=== PATIENT | male | born 1945 | race Caucasian/White ===

== ENCOUNTER 2020-11-24 09:51 | Outpatient (CLI) | payer MEDICARE, BC, SELFPAY ==
[2020-11-24 10:27] LABS: Hematocrit 44.2 % (42.0-52.0); Hemoglobin 14.9 g/dL (14.0-18.0); Mean Corpuscular HGB Conc 33.7 g/dl (32-36); Mean Corpuscular Volume 91.9 fl (80-100); Mean Platelet Volume 9.6 fl (7.4-10.4); Platelet Count Result 213 k/mm3 (150-375); Red Blood Count 4.81 M/mm3 (4.6-6.20); Red Cell Distribution Width 13.3 % (11.5-14.5)
[2020-11-24 11:18] LABS: Erythrocyte Sedimentation Rate 19 mm/hr (0-20)
[2020-11-24 11:25] LABS: Alanine Aminotransferase 23 U/L (4-50); Albumin Level 4.2 g/dL (3.5-5.1); Alkaline Phosphatase 83 U/L (38-126); Anion Gap 5 mmol/L (8-16); Aspartate Amino Transferase 29 U/L (17-59); Bilirubin,Total 0.5 mg/dL (0.2-1.3); Blood Urea Nitrogen 20 mg/dL (9-20); CRP 0.9 mg/dL (<1.0); Carbon Dioxide 28 mmol/L (22-30); Chloride 107 mmol/L (98-107); Estimated Glomerular Filt Rate > 60; Glucose 97 mg/dL (65-110); Potassium 4.1 mmol/L (3.4-5.0); Sodium 140 mmol/L (137-145)
== END 2020-11-24 09:52 | disposition home or self-care (01) ==
PROVIDERS: PCP Emergency Medicine; Visit Provider Nurse Practitioner Family
DX: K52.9 Noninfective gastroenteritis and colitis, unspecified (principal)
CPT/HCPCS: 36415; 80053; 85027; 85652; 86140

== ENCOUNTER 2020-12-01 09:06 | Outpatient (NON) | payer MEDICARE, BC, SELFPAY ==
[2020-12-06 20:32] LABS: Calprotectin, Stool 602 mcg/g
== END 2020-12-01 09:07 | disposition home or self-care (01) ==
LOC: ANHLAB 09:07
PROVIDERS: PCP Emergency Medicine; Visit Provider Nurse Practitioner Family
DX: K52.9 Noninfective gastroenteritis and colitis, unspecified (principal)
CPT/HCPCS: 83993

== ENCOUNTER 2021-06-02 10:24 | Outpatient (CLI) | payer MEDICARE, BC, SELFPAY ==
[2021-06-02 11:00] LABS: Hematocrit 43.9 % (42.0-52.0); Mean Corpuscular HGB Conc 34.2 g/dl (32-36); Mean Corpuscular Hemoglobin 31.2 pg (26-34); Mean Corpuscular Volume 91.3 fl (80-100); Mean Platelet Volume 9.9 fl (7.4-10.4); Platelet Count Result 235 k/mm3 (150-375); Red Blood Count 4.81 M/mm3 (4.6-6.20); Red Cell Distribution Width 13.6 % (11.5-14.5)
[2021-06-02 11:11] LABS: Alanine Aminotransferase 25 U/L (4-50); Alkaline Phosphatase 86 U/L (38-126); Anion Gap 6 mmol/L (8-16); Aspartate Amino Transferase 31 U/L (17-59); Bilirubin,Total 0.8 mg/dL (0.2-1.3); Blood Urea Nitrogen 19 mg/dL (9-20); Calcium 8.4 mg/dL (8.4-10.2); Carbon Dioxide 23 mmol/L (22-30); Chloride 107 mmol/L (98-107); Estimated Glomerular Filt Rate > 60; Glucose 124 mg/dL (65-110); Potassium 4.2 mmol/L (3.4-5.0); Sodium 136 mmol/L (137-145)
== END 2021-06-02 10:25 | disposition home or self-care (01) ==
PROVIDERS: PCP Emergency Medicine; Visit Provider Nurse Practitioner Family
DX: K51.30 Ulcerative (chronic) rectosigmoiditis without complications (principal); K52.9 Noninfective gastroenteritis and colitis, unspecified
CPT/HCPCS: 36415; 80053; 85027

== ENCOUNTER 2021-07-05 00:52 | Day surgery (SDC) | payer MEDICARE, BC, SELFPAY ==
[2021-06-22 14:54] VITALS: BMI 27.8
[2021-07-05 12:41] VITALS: BP 124/70; PULSE 83; RESP 17; TEMP 36.2; O2SAT 98; BMI 27.8
[2021-07-05] MEDS: LACTATED RINGERS 1,000 ML 150 ML IV CONT (12:51)
--- NOTE | 2021-07-05 13:04 | WPDHPUPDATE1 ---
History and Physical Update Update Date/Time: 07/05/21 13:04 History and Physical has been reviewed, including an updated exam of the patient. There are NO changes in the patient's condition. Risks, benefits, and alternatives have been discussed and questions answered. Patient agrees to proceed with procedure.
[2021-07-05 13:51] VITALS: BP 120/62; PULSE 69; RESP 21; O2SAT 98
[2021-07-05 14:01] VITALS: BP 91/50; PULSE 78; RESP 21; O2SAT 99
[2021-07-05 14:11] VITALS: BP 127/64; PULSE 66; RESP 19; O2SAT 97
== END 2021-07-05 14:15 | disposition home or self-care (01) ==
PROVIDERS: PCP Emergency Medicine; Visit Provider Internal Medicine Gastroenterology
PROC: 0DJD8ZZ Inspection of Lower Intestinal Tract, Via Natural or Artificial Opening Endoscopic (ICD-10-PCS; CPT 45378; principal; 2021-07-05 13:30)
DX: K52.9 Noninfective gastroenteritis and colitis, unspecified (principal); K62.1 Rectal polyp; K64.8 Other hemorrhoids
CPT/HCPCS: 45380; 88305; J2704; J7120

== ENCOUNTER 2021-11-30 14:42 | Outpatient (CLI) | payer MEDICARE, BC, SELFPAY ==
[2021-11-30 10:56] LABS: Hematocrit 44.2 % (42.0-52.0); Hemoglobin 14.9 g/dL (14.0-18.0); Mean Corpuscular HGB Conc 33.7 g/dl (32-36); Mean Corpuscular Hemoglobin 31.8 pg (26-34); Mean Corpuscular Volume 94.2 fl (80-100); Mean Platelet Volume 10.1 fl (7.4-10.4); Platelet Count Result 228 k/mm3 (150-375); Red Blood Count 4.69 M/mm3 (4.6-6.20); Red Cell Distribution Width 13.7 % (11.5-14.5); White Blood Count 6.4 K/mm3 (4.5-10.0)
[2021-11-30 11:16] LABS: Alanine Aminotransferase 31 U/L (6-50); Albumin Level 4.2 g/dL (3.5-5.1); Alkaline Phosphatase 75 U/L (38-126); Anion Gap 6 mmol/L (8-16); Aspartate Amino Transferase 31 U/L (17-59); Bilirubin,Total 0.6 mg/dL (0.2-1.3); Blood Urea Nitrogen 17 mg/dL (9-20); CRP 0.9 mg/dL (<1.0); Carbon Dioxide 26 mmol/L (22-30); Chloride 107 mmol/L (98-107); Estimated Glomerular Filt Rate > 60; Glucose 87 mg/dL (65-110); Potassium 4.3 mmol/L (3.4-5.0); Sodium 139 mmol/L (137-145)
[2021-11-30 11:25] LABS: Erythrocyte Sedimentation Rate 18 mm/hr (0-20)
[2021-12-02 11:25] LABS: Hepatitis A Antibody Total Nonreactive (Nonreactive)
[2021-12-02 14:06] LABS: NIL 0.02 IU/mL; Quantiferon TB Plus, 1T NEGATIVE (NEGATIVE)
[2021-12-06 18:22] LABS: Calprotectin, Stool 131 mcg/g
== END 2021-11-30 14:43 | disposition home or self-care (01) ==
PROVIDERS: PCP Emergency Medicine; Visit Provider Nurse Practitioner Family
DX: K52.9 Noninfective gastroenteritis and colitis, unspecified (principal); K51.30 Ulcerative (chronic) rectosigmoiditis without complications
CPT/HCPCS: 36415; 80053; 83993; 85027; 85652; 86140; 86480; 86708

== ENCOUNTER 2022-05-03 09:42 | Outpatient (CLI) | payer MEDICARE, BC, SELFPAY ==
[2022-05-03 10:18] LABS: Hematocrit 43.8 % (42.0-52.0); Hemoglobin 14.8 g/dL (14.0-18.0); Mean Corpuscular HGB Conc 33.8 g/dl (32-36); Mean Corpuscular Hemoglobin 31.7 pg (26-34); Mean Corpuscular Volume 93.8 fl (80-100); Mean Platelet Volume 9.9 fl (7.4-10.4); Platelet Count Result 240 k/mm3 (150-375); Red Blood Count 4.67 M/mm3 (4.6-6.20); Red Cell Distribution Width 13.6 % (11.5-14.5); White Blood Count 6.6 K/mm3 (4.5-10.0)
[2022-05-03 10:34] LABS: Alanine Aminotransferase 28 U/L (6-50); Albumin Level 4.2 g/dL (3.5-5.1); Alkaline Phosphatase 72 U/L (38-126); Anion Gap 5 mmol/L (8-16); Aspartate Amino Transferase 27 U/L (17-59); Bilirubin,Total 0.8 mg/dL (0.2-1.3); Blood Urea Nitrogen 22 mg/dL (9-20); CRP 0.6 mg/dL (<1.0); Calcium 8.8 mg/dL (8.4-10.2); Carbon Dioxide 26 mmol/L (22-30); Chloride 108 mmol/L (98-107); Estimated Glomerular Filt Rate > 60; Glucose 106 mg/dL (65-110); Potassium 4.3 mmol/L (3.4-5.0); Sodium 139 mmol/L (137-145)
[2022-05-03 11:01] LABS: Erythrocyte Sedimentation Rate 14 mm/hr (0-20)
== END 2022-05-03 09:43 | disposition home or self-care (01) ==
LOC: ANHLAB 09:46
PROVIDERS: PCP Emergency Medicine; Visit Provider Nurse Practitioner Family
DX: K52.9 Noninfective gastroenteritis and colitis, unspecified (principal); K51.30 Ulcerative (chronic) rectosigmoiditis without complications
CPT/HCPCS: 36415; 80053; 85027; 85652; 86140

== ENCOUNTER 2022-05-04 08:58 | Outpatient (NON) | payer MEDICARE, BC, SELFPAY ==
[2022-05-14 17:26] LABS: Calprotectin, Stool 649 mcg/g
== END 2022-05-04 08:59 | disposition home or self-care (01) ==
PROVIDERS: PCP Emergency Medicine; Visit Provider Nurse Practitioner Family
DX: K51.30 Ulcerative (chronic) rectosigmoiditis without complications (principal)
CPT/HCPCS: 83993

== ENCOUNTER 2022-05-20 07:54 | Outpatient (CLI) | payer MEDICARE, BC, SELFPAY ==
--- NOTE | ~2022-05-20 | CT_ITS ---
CT of the Abdomen and Pelvis: Indication: Left lower quadrant pain Technique: 2.5 mm axial scans were obtained through the abdomen and pelvis following intravenous adm inistration of 100 cc of Omnipaque 350. Dose reduction technique was used on this scan by utilizing a utomated exposure control and iterative reconstruction technique. The dose-length product (DLP) was 7 51.52 mGy-cm. Findings: Scans through the lung bases demonstrate 5 mm right middle lobe pulmonary nodule (axial im age 5). There is an additional irregular 1 cm opacity at the posterior right lung base (axial image 2 2). Calcified left lower lobe granuloma noted. The liver, spleen, pancreas, gallbladder, adrenals and kidneys are within normal limits. There are at herosclerotic calcifications of the aorta. No lymphadenopathy. There is mild wall thickening of the sigmoid colon with underlying diverticular disease. No abscess o r free air. No significant inflammatory change. Images through the pelvis were performed. Urinary bladder unremarkable. Prostate gland is markedly en larged. No ascites. Impression: Wall thickening of sigmoid: With underlying diverticulosis, no significant inflammatory change. Consi susan minimal acute diverticulitis, muscular hypertrophy due to underlying diverticulosis, or possibly, colonic neoplasm. Correlate with patient's symptomatology and lab work. Consider follow-up exam or c olonoscopy after interval therapy if diverticulitis is suspected clinically. Markedly enlarged prostate gland. Bibasilar pulmonary nodular opacities, as above. Given the largest opacity is 1 cm, recommend 3 month follow-up CT to reassess. Reviewed, dictated and finalized at [facility]. Impression: Wall thickening of sigmoid: With underlying diverticulosis, no significant infl ammatory change. Consider minimal acute diverticulitis, muscular hypertrophy du e to underlying diverticulosis, or possibly, colonic neoplasm. Correlate with p atient's symptomatology and lab work. Consider follow-up exam or colonoscopy af ter interval therapy if diverticulitis is suspected clinically. Markedly enlarged prostate gland. Bibasilar pulmonary nodular opacities, as above. Given the largest opacity is 1 cm, recommend 3 month follow-up CT to reassess.
== END 2022-05-20 07:55 | disposition home or self-care (01) ==
PROVIDERS: PCP Emergency Medicine; Visit Provider Nurse Practitioner Family
DX: R10.32 Left lower quadrant pain (principal); R91.8 Other nonspecific abnormal finding of lung field; N40.0 Benign prostatic hyperplasia without lower urinary tract symptoms
CPT/HCPCS: 74177; Q9967

== ENCOUNTER 2022-07-19 09:22 | Outpatient (CLI) | payer MEDICARE, BC, SELFPAY ==
[2022-07-27 21:27] LABS: Calprotectin, Stool 128 mcg/g
== END 2022-07-19 09:23 | disposition home or self-care (01) ==
PROVIDERS: PCP Emergency Medicine; Visit Provider Nurse Practitioner Family
DX: K51.30 Ulcerative (chronic) rectosigmoiditis without complications (principal)
CPT/HCPCS: 83993

== ENCOUNTER 2022-08-01 00:37 | Day surgery (SDC) | payer MEDICARE, BC, SELFPAY ==
[2022-07-25 10:58] VITALS: BMI 29.3
--- NOTE | 2022-08-01 07:33 | WPDANESEPPF ---
Anes - Initial Pre Proc Eval Procedure: Operation Date: 08/01/22 10:15 Proposed Procedures p Colonoscopy - Haim Morrison MD Date/Time: 08/01/22 07:33 Surgeon: Haim Morrison MD Pre Op Diagnosis: diverticulitis,ulcerative rectosigmoiditis, Patient Data Age: 77 Gender: M Height: 1.73 m Weight: 87.5 kg Allergies Allergy/AdvReac Type Severity Reaction Status Date / Time No Known Allergies Allergy Verified 08/01/22 09:03 Home Medications Medication Instructions Recorded Confirmed Type simvastatin 20 mg tablet 20 mg PO DAILY 11/24/20 07/25/22 History mesalamine 400 mg capsule (with See Rx Instructions .Route 01/11/22 07/25/22 Rx delayed release tablets inside) .COMPLEX #180 caps adalimumab 40 mg/0.8 mL See Rx Instructions subcut 05/17/22 07/25/22 Rx subcutaneous pen kit (Humira Pen) .COMPLEX #2 ea Patient hx anesthesia problems: none Family hx anesthesia problems: none Results Review: All pre-operative results and documents have been reviewed as part of the pre-operative evaluation. [facility] Past Medical History Medical History Diverticulitis Enlarged prostate High cholesterol Overweight (BMI 25.0-29.9) Ulcerative colitis, rectosigmoid Family History Family History Father Heart disease Social History Social History Smoking packs per day: 2 Smoking cigarettes per day: 40.0 Years smoked: 30 Smoking pack-years: 60.00 Smoking status: Former smoker Tobacco type: cigarettes Second hand tobacco smoke exposure: No Alcohol intake: current Drinks per week: 1 Alcohol use details: BEER Substance use: never Substance use type: does not use Living arrangements: alone Occupation/Education: retired Gender identity (if verbalized by the patient): Male Spiritual care concerns: No Agree to blood products: No Anes - Eval Final PreProcedure Day of Procedure 08/01/22 07:33 Patient weight: overweight Heart: regular rate and rhythm Lungs: clear to auscultation Airway: Mallampati scale class II Neurological: alert and oriented Last oral intake: >/= 8 hours ASA classification: III Emergent: no Anesthetic plan: proceed Anesthesia type and monitoring: general GIVS and standard monitoring Results Review: All pre-operative results and documents have been reviewed as part of the pre-operative evaluation. Informed Consent: The patient's anesthetic plan and its attendant risks and benefits were discussed with the patient/family/POA. Questions were solicited and answers provided to the satisfaction of the patient/family/POA.
[2022-08-01 09:04] VITALS: BP 132/61; PULSE 72; RESP 16; TEMP 36; O2SAT 97
[2022-08-01] MEDS: LACTATED RINGERS 1,000 ML 150 ML IV CONT (09:22)
--- NOTE | 2022-08-01 09:39 | PM.HPGS ---
History of Present Illness History of Present Illness Consent: Risks, benefits, and alternatives have been discussed and questions answered. Patient agrees to proceed with procedure. Chief complaint: diverticulitis,ulcerative rectosigmoiditis, Narrative: Mario Alberto Rogers is a 77 year old male Presents for colonoscopy. Patient was diagnosed with ulcerative proctosigmoiditis in 2020. Exam 1 year ago revealed stable recto sigmoiditis. Patient initially treated with Delzicol. Over the last 2 months has been started on supplementary Humira. Patient states his symptoms are stable. He denies any pain or bleeding. he may have had brief episode of abdominal pain in April of this year. recent CT scan raised the question of possible diverticulitis. Although patient has minimal complaints of any discomfort. Colonoscopy recommended at this time for surveillance. Patient reports no significant blood in his stools at present. Denies abdominal pain. Review of Systems Review of Systems: Review of systems noncontributory. [facility] Past Medical History Medical History Diverticulitis Enlarged prostate High cholesterol Overweight (BMI 25.0-29.9) Ulcerative colitis, rectosigmoid Family History Family History Father Heart disease Social History Social History Smoking packs per day: 2 Smoking cigarettes per day: 40.0 Years smoked: 30 Smoking pack-years: 60.00 Smoking status: Former smoker Tobacco type: cigarettes Second hand tobacco smoke exposure: No Alcohol intake: current Drinks per week: 1 Alcohol use details: BEER Substance use: never Substance use type: does not use Living arrangements: alone Occupation/Education: retired Gender identity (if verbalized by the patient): Male Spiritual care concerns: No Agree to blood products: No Meds Home Medications and Allergies Home Medications Medication Instructions Recorded Confirmed Type simvastatin 20 mg tablet 20 mg PO DAILY 11/24/20 07/25/22 History mesalamine 400 mg capsule (with See Rx Instructions .Route 01/11/22 07/25/22 Rx delayed release tablets inside) .COMPLEX #180 caps adalimumab 40 mg/0.8 mL See Rx Instructions subcut 05/17/22 07/25/22 Rx subcutaneous pen kit (Humira Pen) .COMPLEX #2 ea Allergies Allergy/AdvReac Type Severity Reaction Status Date / Time No Known Allergies Allergy Verified 08/01/22 09:03 Vital Signs Vital Signs - 24 hr 08/01/22 09:04 Temperature 96.8 F L Pulse Rate 72 Respiratory Rate 16 Blood Pressure 132/61 Pulse Oximetry 97 Oxygen Delivery Room Air Exam Narrative: Physical exam reveals patient to be alert. Vital signs stable. HEENT exam is unremarkable. Patient is anicteric. Lungs are clear to auscultation and percussion. Heart is without murmur or extra sounds. Abdomen bowel sounds are present soft nontender with no organomegaly. Digital external rectal exam is normal. Assessment and Plan Assessment and plan (1) Ulcerative colitis, rectosigmoid: Code(s): K51.30 - Ulcerative (chronic) rectosigmoiditis without complications Status: Acute Assessment and Plan: Patient with chronic ulcerative proctosigmoiditis. Symptoms appear to have improved on combination of Delzicol and Humira. Plan to continue this for some time. Surveillance colonoscopy has been recommended. Further recommendations may be given after endoscopy.
[2022-08-01] MEDS: SIMETHICONE ORAL SUSPENSION 20 MG/0.3 ML 30 ML BOTTLE 0.6 ML IRRIGATION (10:26)
[2022-08-01 10:35] VITALS: BP 112/56; PULSE 66; RESP 13; O2SAT 95
[2022-08-01 10:45] VITALS: BP 99/67; PULSE 57; RESP 17; O2SAT 96
[2022-08-01 10:55] VITALS: BP 101/62; PULSE 67; RESP 17; O2SAT 96
== END 2022-08-01 11:05 | disposition home or self-care (01) ==
PROVIDERS: PCP Emergency Medicine; Visit Provider Internal Medicine Gastroenterology
PROC: 0DJD8ZZ Inspection of Lower Intestinal Tract, Via Natural or Artificial Opening Endoscopic (ICD-10-PCS; CPT 45378; principal; 2022-08-01 10:15)
DX: K51.30 Ulcerative (chronic) rectosigmoiditis without complications (principal); D12.2 Benign neoplasm of ascending colon; K57.30 Diverticulosis of large intestine without perforation or abscess without bleeding; K64.8 Other hemorrhoids; Z79.620 Long term (current) use of immunosuppressive biologic; E78.00 Pure hypercholesterolemia, unspecified; Z87.891 Personal history of nicotine dependence
CPT/HCPCS: 45385; 45380; 88305; J2704; J7120

== ENCOUNTER 2022-12-06 10:07 | Outpatient (CLI) | payer MEDICARE, BC, SELFPAY ==
[2022-12-06 10:54] LABS: Hematocrit 49.2 % (42.0-52.0); Hemoglobin 16.3 g/dL (14.0-18.0); Mean Corpuscular HGB Conc 33.1 g/dl (32-36); Mean Corpuscular Hemoglobin 30.8 pg (26-34); Mean Platelet Volume 10.4 fl (7.4-10.4); Platelet Count Result 217 k/mm3 (150-375); Red Blood Count 5.29 M/mm3 (4.6-6.20); Red Cell Distribution Width 13.4 % (11.5-14.5); White Blood Count 6.4 K/mm3 (4.5-10.0)
[2022-12-06 11:10] LABS: Alanine Aminotransferase 29 U/L (6-50); Albumin Level 4.3 g/dL (3.5-5.1); Alkaline Phosphatase 72 U/L (38-126); Anion Gap 5 mmol/L (8-16); Aspartate Amino Transferase 32 U/L (17-59); Blood Urea Nitrogen 17 mg/dL (9-20); CRP 0.6 mg/dL (<1.0); Calcium 9.1 mg/dL (8.4-10.2); Carbon Dioxide 27 mmol/L (22-30); Chloride 105 mmol/L (98-107); Estimated Glomerular Filt Rate 59; Glucose 97 mg/dL (65-110); Potassium 4.7 mmol/L (3.4-5.0); Sodium 137 mmol/L (137-145)
[2022-12-06 12:00] LABS: Erythrocyte Sedimentation Rate 9 mm/hr (0-20)
== END 2022-12-06 10:08 | disposition home or self-care (01) ==
PROVIDERS: PCP Emergency Medicine; Visit Provider Nurse Practitioner Family
DX: K51.30 Ulcerative (chronic) rectosigmoiditis without complications (principal); Z86.010 Personal history of colon polyps
CPT/HCPCS: 36415; 80053; 85027; 85652; 86140

== ENCOUNTER 2023-06-19 09:22 | Outpatient (CLI) | payer MEDICARE, BC, SELFPAY ==
[2023-06-19 09:52] LABS: Hematocrit 46.2 % (42.0-52.0); Hemoglobin 15.7 g/dL (14.0-18.0); Mean Corpuscular Hemoglobin 31.5 pg (26-34); Mean Corpuscular Volume 92.8 fl (80-100); Platelet Count Result 207 k/mm3 (150-375); Red Blood Count 4.98 M/mm3 (4.6-6.20); Red Cell Distribution Width 13.2 % (11.5-14.5); White Blood Count 6.1 K/mm3 (4.5-10.0)
[2023-06-19 10:07] LABS: Alanine Aminotransferase 26 U/L (6-50); Albumin Level 4.2 g/dL (3.5-5.1); Alkaline Phosphatase 76 U/L (38-126); Anion Gap 5 mmol/L (4-12); Aspartate Amino Transferase 30 U/L (17-59); Bilirubin,Total 0.7 mg/dL (0.2-1.3); Blood Urea Nitrogen 21 mg/dL (9-20); CRP < 0.5 mg/dL (<1.0); Calcium 9.2 mg/dL (8.4-10.2); Carbon Dioxide 26 mmol/L (22-30); Chloride 108 mmol/L (98-107); Estimated Glomerular Filt Rate 58; Glucose 158 mg/dL (65-110); Potassium 4.3 mmol/L (3.4-5.0); Sodium 139 mmol/L (137-145)
[2023-06-19 10:56] LABS: Erythrocyte Sedimentation Rate 14 mm/hr (0-20)
== END 2023-06-19 09:23 | disposition home or self-care (01) ==
PROVIDERS: PCP Emergency Medicine; Visit Provider Nurse Practitioner
DX: K51.30 Ulcerative (chronic) rectosigmoiditis without complications (principal); Z86.010 Personal history of colon polyps
CPT/HCPCS: 36415; 80053; 85027; 85652; 86140

== ENCOUNTER 2023-07-10 10:17 | Outpatient (CLI) | payer MEDICARE, BC, SELFPAY ==
[2023-07-16 16:03] LABS: Calprotectin, Stool 140 mcg/g
== END 2023-07-10 10:18 | disposition home or self-care (01) ==
LOC: ANHLAB 10:20
PROVIDERS: PCP Emergency Medicine; Visit Provider Nurse Practitioner Family
DX: R19.5 Other fecal abnormalities (principal); K51.30 Ulcerative (chronic) rectosigmoiditis without complications
CPT/HCPCS: 83993

== ENCOUNTER 2024-01-02 13:24 | Outpatient (CLI) | payer MEDICARE, BC, SELFPAY ==
[2024-01-02 13:44] LABS: Basophils Absolute Auto 0.1 K/mm3 (0.0-0.1); Basophils Percent Auto 0.8 % (0.2-1.2); Eosinophils Absolute Auto 0.3 K/mm3 (0-0.3); Eosinophils Percent Auto 4.3 % (0-4.4); Hematocrit 44.5 % (42.0-52.0); Hemoglobin 15.3 g/dL (14.0-18.0); Immature Granulocyte Absolute 0.01 K/mm3 (0.00-0.031); Immature Granulocyte Percent A 0.2 % (0-0.5); Lymphocytes Absolute Auto 2.34 K/mm3 (0.9-3.2); Lymphocytes Percent Auto 36.2 % (18.3-44.2); Mean Corpuscular HGB Conc 34.4 g/dl (32-36); Mean Corpuscular Hemoglobin 31.6 pg (26-34); Mean Corpuscular Volume 91.9 fl (80-100); Mean Platelet Volume 10.1 fl (7.4-10.4); Monocytes Absolute Auto 0.6 K/mm3 (0.1-0.6); Monocytes Percent Auto 9.7 % (2.6-8.5); Neutrophils Absolute Auto 3.2 K/mm3 (1.3-6.7); Neutrophils Percent Auto 48.8 % (45.5-73.1); Platelet Count Result 188 k/mm3 (150-375); Red Blood Count 4.84 M/mm3 (4.6-6.20); Red Cell Distribution Width 13.5 % (11.5-14.5); White Blood Count 6.5 K/mm3 (4.5-10.0)
[2024-01-02 13:58] LABS: Alanine Aminotransferase 22 U/L (6-50); Albumin Level 4.1 g/dL (3.5-5.1); Alkaline Phosphatase 66 U/L (38-126); Anion Gap 3 mmol/L (4-12); Aspartate Amino Transferase 27 U/L (17-59); Bilirubin,Total 0.6 mg/dL (0.2-1.3); Blood Urea Nitrogen 21 mg/dL (9-20); Calcium 9.1 mg/dL (8.4-10.2); Carbon Dioxide 29 mmol/L (22-30); Chloride 104 mmol/L (98-107); Estimated Glomerular Filt Rate 58; Glucose 132 mg/dL (65-110); Iron 122 ug/dL (49-181); Potassium 4.4 mmol/L (3.4-5.0); Sodium 136 mmol/L (137-145)
[2024-01-02 14:08] LABS: Percent Iron Saturation 37 % (20-50)
[2024-01-02 14:29] LABS: Hepatitis B Core IgM Result Negative (Negative)
== END 2024-01-02 13:25 | disposition home or self-care (01) ==
PROVIDERS: PCP Emergency Medicine; Visit Provider Nurse Practitioner Family
DX: K50.10 Crohn's disease of large intestine without complications (principal); R19.5 Other fecal abnormalities; K52.9 Noninfective gastroenteritis and colitis, unspecified
CPT/HCPCS: 36415; 80048; 80076; 82728; 83540; 83550; 85025; 86480; 86705